=== PATIENT | male | born 1940 | race Hispanic/Latino ===

== ENCOUNTER 2018-08-11 09:27 | Emergency (ER) | payer MEDICARE, BC ==
[2018-08-11 09:27] VITALS: BMI 28.1
[2018-08-11 09:42] VITALS: RESP 18; TEMP 97.9
--- NOTE | 2018-08-11 09:45 | ED PDOC ---
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 Patient states he had a cystoscopy performed a week ago and is currently on flomax and finasteride for his prostate. Patient reports he has been experiencing a burning sensation for the past few days, no fever/chills/night sweat/hematuria/night sweat/rash/numbness/tingling. Time/Duration: Other (a few days) Symptom Onset: Gradual Symptom Course: Unchanged Activities at Onset: Light Context: Home Past Medical History - Provider Review Nursing Documentation Reviewed: Yes - Cardiac Hx Pacemaker: No - Pulmonary Hx Chronic Obstructive Pulmonary Disease (COPD): Yes - Neurological Hx Paralysis: No - Hematological/Oncological Hx Blood Transfusions: No - Musculoskeletal/Rheumatological Hx Musculoskeletal Disorders: No - Psychiatric Hx Emotional Abuse: No Hx Physical Abuse: No Hx Substance Use: No - Anesthesia Hx Anesthesia: Yes Hx Anesthesia Reactions: No Hx Malignant Hyperthermia: No - Suicidal Assessment Feels Threatened In Home Enviroment: No Family/Social History - Physician Review Nursing Documentation Reviewed: Yes Family/Social History: No Known Family HX Smoking Status: Never Smoked Hx Alcohol Use: Yes (OCCASIONAL) Hx Substance Use: No Allergies/Home Meds Allergies/Adverse Reactions: Allergies amoxicillin trihydrate [From Augmentin] Adverse Reaction (Severe, Verified 02/06/16 13:49) VOMITING potassium clavulanate [From Augmentin] Adverse Reaction (Severe, Verified 02/06/16 13:49) VOMITING Home Medications: Home Meds Medication Instructions Recorded Confirmed Cholecalciferol [Vitamin D] 1,000 iu PO DAILY 02/06/16 02/09/16 Multivit,Iron,Min 5/Folic Acid 1 tab PO DAILY 02/06/16 02/09/16 [Strovite Forte] Stiletto 2 puff INH BID 02/06/16 02/09/16 Review of Systems - Physician Review All systems were reviewed & negative as marked: Yes - Review of Systems Constitutional: absent: Fatigue, Fevers Cardiovascular: absent: Chest Pain Gastrointestinal: absent: Abdominal Pain, Diarrhea, Nausea, Vomiting Genitourinary Male: Dysuria. absent: Frequency, Hematuria, Urinary Output Changes Skin: absent: Rash, Pruritis Neurological: absent: Headache, Dizziness, Speech Changes Psychiatric: absent: Anxiety, Depression, Suicidal Ideation Physical Exam Vital Signs Reviewed: Yes Vital Signs Temp Pulse Resp BP Pulse Ox 08/11/18 09:27 97.9 F 107 H 18 115/70 97 Temperature: Afebrile Blood Pressure: Normal Pulse: Tachycardic Respiratory Rate: Normal Appearance: Positive for: Well-Appearing Pain Distress: Mild Mental Status: Positive for: Alert and Oriented X 3 - Systems Exam Head: Present: Atraumatic, Normocephalic Pupils: Present: PERRL Extroacular Muscles: Present: EOMI Conjunctiva: Present: Normal Ears: Present: NORMAL TM, Normal Canal. No: Erythema Respiratory/Chest: Present: Clear to Auscultation, Good Air Exchange. No: Respiratory Distress, Accessory Muscle Use Cardiovascular: Present: Regular Rate and Rhythm, Normal S1, S2. No: Murmurs Abdomen: No: Tenderness, Distention, Peritoneal Signs Genitourinary Male: Present: Normal External Genitalia, Circumcised Penis, Other (no blood on meatus). No: Lesions, Penile Discharge, Testicle Tenderness, Penile Swelling, Masses, Erythema, Hernias, Testicle Swelling Back: Present: Normal Inspection Upper Extremity: Present: Normal Inspection. No: Cyanosis, Edema Lower Extremity: Present: Normal Inspection. No: Edema Neurological: Present: GCS=15, CN II-XII Intact, Speech Normal Skin: Present: Warm, Dry, Normal Color. No: Rashes Psychiatric: Present: Alert, Oriented x 3, Normal Insight, Normal Concentration Medical Decision Making ED Course and Treatment: 08/11/18 09:50 Impression: 78 y/o male c/o difficulty to urinate. Differential Diagnosis included but are not limited to: urinary retention Plan: -- ciprofloxacin -- Urine culture -- Urinalysis -- Reassess and disposition Prior Visits: Notes and results from previous visits were reviewed. Progress Notes: 08/11/18 10:21 -Bladder scanner show 360cc of urine, inserted neal and less than 30cc removed, uncomfortable and the patient request to remove which the RN remove it. Pt. able to urinate after the neal remove. -UA show+ UTI, ciprofloxacin ordered. -Pt. has follow up with dr. worthington in 3 days. -Discharge home with ciprofloxacin (avoid gym and exercise while taking this medication), pyridium, continue your BPH medication, follow up with your own pmd and Dr. Worthington in 2 days, return to the ER for any new or worsening signs or symptoms. 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 - Scribe Statement The provider has reviewed the documentation as recorded by the Scribe Mabel Lugo All medical record entries made by the Scribe were at my direction and personally dictated by me. I have reviewed the chart and agree that the record accurately reflects my personal performance of the history, physical exam, medical decision making, and the department course for this patient. I have also personally directed, reviewed, and agree with the discharge instructions and disposition. Disposition/Present on Arrival - Present on Arrival Any Indicators Present on Arrival: No History of DVT/PE: No History of Uncontrolled Diabetes: No Urinary Catheter: No History of Decub. Ulcer: No History Surgical Site Infection Following: None - Disposition Have Diagnosis and Disposition been Completed?: Yes Diagnosis: UTI (urinary tract infection) Disposition: HOME/ ROUTINE Disposition Time: 10:46 Patient Plan: Discharge Patient Problems: Current Active Problems Problem Status Onset UTI (urinary tract infection) Acute Condition: IMPROVED Additional Instructions: Discharge home with ciprofloxacin (avoid gym and exercise while taking this medication), pyridium, continue your BPH medication, follow up with your own pmd and Dr. Worthington in 2 days, return to the ER for any new or worsening signs or symptoms. Prescriptions: Ciprofloxacin/Ciprofloxa HCl [Ciprofloxacin] 500 mg PO BID #47 tab Phenazopyridine [Phenazopyridine HCl] 200 mg PO TID #6 tab Referrals: Cuba Bonilla MD [Primary Care Provider] - Follow up with primary Diaz Worthington MD [Staff Provider] - Follow up with primary Forms: [employer] (Sinhala), WORK NOTE
[2018-08-11 09:53] LABS: PH,URINE 6.5 (4.7-8.0); URINE BILIRUBIN NEGATIVE (NEGATIVE); URINE BLOOD TRACE-INTACT (NEGATIVE); URINE GLUCOSE (UA) NEGATIVE (NEGATIVE); URINE LEUKOCYTE ESTERASE SMALL Leu/uL (NEGATIVE); URINE PROTEIN 100 mg/dL (<30 mg/dL)
[2018-08-11 09:56] LABS: URINE APPEARANCE TURBID (CLEAR); URINE COLOR YELLOW (YELLOW)
[2018-08-11 10:03] LABS: URINE BACTERIA FEW /hpf; URINE RBC 0 - 2 /hpf (0-2); URINE WBC TNTC /hpf (0-6)
[2018-08-11 11:35] VITALS: BP 124/89; PULSE 97; O2SAT 98
== END 2018-08-11 11:38 | disposition home or self-care (01) ==
LOC: ED 09:27
DX: N39.0 Urinary tract infection, site not specified (principal); E78.5 Hyperlipidemia, unspecified; I10 Essential (primary) hypertension; J44.9 Chronic obstructive pulmonary disease, unspecified; N40.0 Benign prostatic hyperplasia without lower urinary tract symptoms